=== PATIENT | female | born 1960 | race Caucasian/White ===

== ENCOUNTER → 2017-06-10 | Outpatient (CLI) | payer BC ==
--- NOTE | 2017-06-13 11:29 | MM ---
Reason for exam: screening (asymptomatic). Last mammogram was performed 2 years and 3 months ago. History: Patient is postmenopausal. Family history of breast cancer in paternal aunt. Physical Findings: A clinical breast exam by your physician is recommended on an annual basis and results should be correlated with mammographic findings. MG Screening Mammo w CAD Bilateral CC and MLO view(s) were taken. Prior study comparison: March 20, 2015, bilateral MG screening mammo w CAD. June 27, 2013, bilateral digital screening mammo w/CAD. There are scattered fibroglandular densities. Finding: There are typically benign dystrophic, round calcifications in both breasts. There is no discrete abnormality. ASSESSMENT: Benign, BI-RAD 2 RECOMMENDATION: Routine screening mammogram of both breasts in 1 year.
== END ==
LOC: RADMAMWWP 16:48
PROVIDERS: ATTEND Obstetrics & Gynecology
DX: Z12.31 Encounter for screening mammogram for malignant neoplasm of breast (principal)

== ENCOUNTER → 2017-06-11 | Outpatient (CLI) | payer BC | END | disposition home or self-care (01) | LOC: LABWHC1 08:23 | PROVIDERS: ATTEND Obstetrics & Gynecology | DX: E78.4 Other hyperlipidemia (principal) | CPT/HCPCS: 36415; 80061; 82947; 84439; 84443; 87086 ==

== ENCOUNTER → 2017-06-27 | Outpatient (CLI) | payer BC ==
--- NOTE | 2017-06-29 13:03 | BD ---
EXAMINATION TYPE: MG DEXA axial skeleton. DATE OF EXAM: 06/27/2017 COMPARISON: 06/27/2013 CLINICAL HISTORY: Postmenopausal female. Screening. Height: 63.5 IN Weight: 191 LBS FRAX RISK QUESTIONS: Alcohol (3 or more units per day): NO Family History (Parent hip fracture): NO Glucocorticoids (More than 3mos): NO (Ex: prednisone, prednisolone, methylprednisolone, dexamethasone, and hydrocortisone). History of Fracture in Adulthood: NO Secondary Osteoporosis: 1. Type 1 Diabetes: NO 2. Hyperthyroidism: NO 3. Menopause before 45: NO 4. Malnutrition: NO 5. Chronic liver disease: NO Rheumatoid Arthritis: NO Current Tobacco Use: NO RISK FACTORS HISTORY OF: Active: YES Postmenopausal woman: AGE 55 MEDICATIONS: Additional Medications: NONE EXAM MEASUREMENTS: Bone mineral densitometry was performed using the [employer] System. Bone mineral density as measured about the Lumbar spine is: ----- L1-L4(G/cm2): 1.185 T Score Values are as follows: ----- L2: -0.1 ----- L3: -0.3 ----- L4: 0.9 ----- L1-L4: 0.0 Bone mineral density has: Decreased -11.7SINCE STUDY OF06/27/2013 Bone mineral density about the R hip (g/cm2): 0.991 Bone mineral density about the L hip (g/cm2): 0.932 T Score values are as follows: -----R Neck: -0.3 -----L Neck: -0.8 -----R Total: 0.2 -----L Total: 0.0 Bone mineral density has: Decreased -9.3 SINCE STUDY OF06/27/2013 IMPRESSION: Normal (Values between +1 and -1 indicate normal bone mass). Consider repeating this study in 5 year s or sooner if there is some new clinical indication. NOTE: T-SCORE=SD OF THE YOUNG ADULT MEAN.
== END | disposition home or self-care (01) ==
LOC: RADBDWWP 16:18
PROVIDERS: ATTEND Obstetrics & Gynecology
DX: Z13.820 Encounter for screening for osteoporosis (principal)
CPT/HCPCS: 77080

== ENCOUNTER → 2018-11-04 | Outpatient (CLI) | payer BC ==
[2018-11-04 16:55] LABS: Albumin 4.3 g/dL (3.80-4.90); Albumin/Globulin Ratio 1.87 (1.60-3.17); Anion Gap 6.6 mmol/L (4.00-12.00); Calcium 9.4 mg/dL (8.7-10.3); Carbon Dioxide 29.4 mmol/L (21.6-31.8); Globulin 2.3 g/dL (1.6-3.3); LDL Cholesterol,Calculated 118.6 mg/dL (0.0-131.0); Potassium 4.2 mmol/L (3.5-5.5); Total Bilirubin 0.6 mg/dL (0.2-1.2); Total Protein 6.6 g/dL (6.2-8.2); VLDL Calculation 49.4 mg/dL (5.00-40.00)
== END ==
LOC: LABWHC1 09:01
PROVIDERS: ATTEND Nurse Practitioner Adult Health
DX: I10 Essential (primary) hypertension (principal); E78.5 Hyperlipidemia, unspecified; I47.1 Supraventricular tachycardia
CPT/HCPCS: 36415; 80053; 80061; 84443; 84481

== ENCOUNTER → 2018-11-30 | Outpatient (CLI) | payer BC ==
--- NOTE | 2018-11-30 18:04 | CONS ---
CONSULTATION DATE OF SERVICE: 11/30/2018 58-year-old lady who has been evaluated in the sleep center for possible obstructive sleep apnea-hypopnea syndrome. HISTORY OF PRESENT ILLNESS/ SLEEP-WAKE A EVALUATION: SLEEP SCHEDULE: Patient usual sleep schedule on working days from 11 p.m. until 6:45 to 7:00 am. On weekends from 10 p.m. to 8 a.m. FALLING ASLEEP: No problem with falling asleep, although patient has TV set in bedroom. DURING SLEEP: She usually sleeps on the stomach position. While falling asleep, she has some movements of her legs. She snores and wakes up from sleep once with nocturia. DURING THE DAY/SLEEP WAKE EVALUATION: No history of hypnagogic hallucinations, sleep paralysis or cataplexy. [place] Sleepiness Scale is 7. PAST MEDICAL HISTORY: Positive for hypertension. Episode of cardiac arrhythmia documented by Holter monitor during sleep. MEDICATIONS: Lisinopril, metoprolol. PAST SURGICAL HISTORY: Mole removed from the back, D and C. SOCIAL HISTORY: Negative for smoking. Alcohol consumption very occasional. FAMILY HISTORY: Colon cancer by her dad, diabetes by her mom. REVIEW OF SYSTEMS: Movements of legs while falling asleep during the night. PHYSICAL EXAM: lady without distress. BP 140/83, HR 75, RR 14, height 5 feet 3 and one half inches, weight 191.2 pounds, with body mass index 33.3, temperature 98.1, oxygen saturation at room air 99%. Oropharynx extremely low position of soft palate. Mallampati 4. Temperature 98.1. Neck Supple, no JVD. Thyroid is not palpable. LUNGS Clear to percussion and to auscultation. Good air exchange. No wheezing or rhonchi. HEART S1, S2 regular. No murmurs, gallops, or rubs. ABDOMEN: Slightly obese. Soft and nontender. Bowel sounds are present. No organomegaly appreciated. EXTREMITIES No clubbing or cyanosis. MID LEVEL DEVELOPER Awake, alert, and oriented X3. Cranial nerves 2 to 7 intact. There is no fasciculation or atrophy noted. No focal deficits observed. IMPRESSIONS: 1. ALICE 2. PLMS. 3. H/o Cardiac arrthymia. 4. Obesity. 5. HTN. PLAN: 1. Polysomnography for evaluation of patient's breathing during sleep. 2. CPAP/BiPAP titration if sleep study confirms obstructive sleep apnea-hypopnea syndrome. 3. Preferable position during sleep on the side. 4. No driving if patient feels any sleepiness. 5. I will see patient for follow up visit to explain results of testing and following plan. Thank you very much for referring this patient for consultation. Sincerely, David Staton MD, PhD, FAASM Diplomat of [place] [place] [employer] Kier Boiler of [facility] [place] MMODL / TIMN: [id number] / [facility]
== END | disposition home or self-care (01) ==
LOC: SLEEP 16:06
PROVIDERS: ATTEND Internal Medicine
DX: G47.33 Obstructive sleep apnea (adult) (pediatric) (principal); G47.61 Periodic limb movement disorder; R35.1 Nocturia; I10 Essential (primary) hypertension; E66.9 Obesity, unspecified; Z86.79 Personal history of other diseases of the circulatory system; Z68.33 Body mass index [BMI] 33.0-33.9, adult; Z98.890 Other specified postprocedural states; Z79.899 Other long term (current) drug therapy
CPT/HCPCS: 99211

== ENCOUNTER → 2018-12-15 | Outpatient (CLI) | payer BC ==
--- NOTE | 2018-12-18 10:23 | MM ---
Reason for exam: screening (asymptomatic). Last mammogram was performed 1 year and 6 months ago. History: Patient is postmenopausal. Family history of breast cancer in paternal aunt. Physical Findings: A clinical breast exam by your physician is recommended on an annual basis and results should be correlated with mammographic findings. MG Screening Mammo w CAD Bilateral CC and MLO view(s) were taken. Prior study comparison: June 10, 2017, bilateral MG screening mammo w CAD. March 20, 2015, bilateral MG screening mammo w CAD. The breast tissue is almost entirely fat. No significant changes when compared with prior studies. ASSESSMENT: Benign, BI-RAD 2 RECOMMENDATION: Routine screening mammogram of both breasts in 1 year.
== END ==
LOC: RADMAMWWP 15:47
PROVIDERS: ATTEND Obstetrics & Gynecology
DX: Z12.31 Encounter for screening mammogram for malignant neoplasm of breast (principal)
CPT/HCPCS: 77067

== ENCOUNTER → 2019-05-17 | Outpatient (CLI) | payer BC ==
--- NOTE | 2019-05-17 18:24 | PN ---
PROGRESS NOTE DATE OF SERVICE: 05/17/2019 This patient is a 59-year-old lady who has been followed in the sleep center for treatment of obstructive sleep apnea-hypopnea syndrome. Recently the patient had a home sleep apnea test which showed apnea-hypopnea index 26.6 with oxygen desaturation to 72%. The patient underwent a CPAP titration and her respiration was normalized. Subsequently she received her CPAP unit. Today is her first visit after she started to use her CPAP equipment. The patient is able to use CPAP equipment every night without significant problems related to mask fitting, pressure or humidification. According to her , she does not snore while using her CPAP. [place] Sleepiness Scale today is 10. I checked her CPAP unit. CPAP pressure is 9 cm of water. Usage is 24/30 nights for more than 4 hours, which is good compliance. Average usage 5 hours per night. Leak is 30 L/minute, which is borderline. Apnea-hypopnea index reading is only 1.3, which is absolutely perfect. MEDICATIONS: 1. Metoprolol. 2. Lisinopril. PHYSICAL EXAMINATION: GENERAL: A pleasant patient in no distress. VITAL SIGNS: BP 122/76, HR 70, RR 16, weight 193, temperature 98.2, oxygen saturation at room air 96%. HEENT: PERRLA, EOMI. Evaluation of oropharynx showed tongue protrudes midline. Low position of soft palate. Mallampati IV. NECK: Supple. No JVD. Thyroid is not palpable. LUNGS: Clear to percussion and to auscultation. Good air exchange. No wheezing or rhonchi. HEART: S1, S2 regular. No murmurs, gallops or rubs. ABDOMEN: Slightly obese. EXTREMITIES: No clubbing or cyanosis. COMMERCIAL INSULATOR: Awake, alert, and oriented X3. Cranial nerves 2 to 7 intact. There is no fasciculation or atrophy. noted. No focal deficits observed. IMPRESSION: 1. Moderate obstructive sleep apnea-hypopnea syndrome; apnea-hypopnea index 26.6 with oxygen desaturation to 72% by results of home sleep apnea test. The patient demonstrated great compliance with treatment, benefitting from treatment. 2. Hypertension. 3. Obesity. 4. History of cardiac arrhythmia; bundle branch block, according to patient. PLAN: 1. Patient will continue to use CPAP equipment every night for the whole night. 2. Losing weight. 3. Sleep hygiene with regular time in bed for at least 8 hours. 4. No driving if feeling any sleepiness. 5. I will maintain all necessary CPAP prescriptions, including mask, tube, filters. Thank you very much for allowing me to participate in the management of your patient. Sincerely, David Staton MD, PhD, FAASM Diplomat of [place] [employer] [place] [employer] [facility] [place] MMODL / TIMN: [id number] /
== END | disposition home or self-care (01) ==
LOC: SLEEP 15:40
PROVIDERS: ATTEND Internal Medicine
DX: G47.33 Obstructive sleep apnea (adult) (pediatric) (principal); I10 Essential (primary) hypertension; E66.9 Obesity, unspecified; Z86.79 Personal history of other diseases of the circulatory system; Z99.89 Dependence on other enabling machines and devices; Z79.899 Other long term (current) drug therapy

== ENCOUNTER → 2020-05-22 | Outpatient (CLI) | payer BC ==
--- NOTE | 2020-05-22 18:46 | SFUN ---
SLEEP CENTER FOLLOW UP NOTE DATE OF SERVICE: 05/22/2020 This patient is a 60-year-old lady who has been followed in Sleep Center for treatment of obstructive sleep apnea-hypopnea syndrome. The patient continues to use her CPAP equipment every night for the whole night. She does not snore with the machine. She feels slightly uncomfortable with the nasal mask and is asking for a trial with nasal pillows. [place] Sleepiness Scale today is 11, which is slightly above normal. I checked her CPAP unit. Usage is 29/30 nights, 17/30 nights for more than 4 hours. Average usage 4.2 hours per night. Leak is 43 L/minute. Pressure is 9 cm of water. Apnea-hypopnea index is 1.0. MEDICATIONS: Metoprolol, lisinopril. PHYSICAL EXAMINATION: GENERAL: A pleasant patient in no distress. VITAL SIGNS: BP 126/81, HR 72, RR 15, height 5 feet 4 inches, weight 199, body mass index 33.9. The patient's weight increased by about 6 pounds since her previous visit. Temperature 98.6. Oxygen saturation at room air 99%. HEENT: PERRLA, EOMI. Evaluation of oropharynx showed tongue protrudes midline. Low position of soft palate. Mallampati IV. NECK: Supple. No JVD. Thyroid is not palpable. LUNGS: Clear to percussion and to auscultation. Good air exchange. No wheezing or rhonchi. HEART: S1, S2 regular. No murmurs, gallops or rubs. ABDOMEN: Slightly obese. EXTREMITIES: No clubbing or cyanosis. BELT SANDER STONE: Awake, alert, and oriented X3. Cranial nerves 2 to 7 intact. There is no fasciculation or atrophy. noted. No focal deficits observed. IMPRESSION: 1. Moderate obstructive sleep apnea-hypopnea syndrome; apnea-hypopnea index 26.6 with oxygen saturation to 72% by results of home sleep test. The patient demonstrated borderline compliance with treatment, benefitting from treatment. 2. Hypertension. 3. Obesity. 4. History of bundle branch block. PLAN: 1. We discussed with the patient the necessity to increase the time of usage of her CPAP unit during sleep. Again, average time is 4.2 hours, and I would prefer that she use it more. 2. We will try nasal pillows, AirFit P10, instead of nasal mask. 3. Sleep hygiene with regular time in bed for at least 7-1/2 to 8 hours. 4. Precautions related to driving. No driving if feeling sleepiness. 5. I will maintain all necessary prescription for PAP supplies including mask, tube, filters. 6. Watching weight. 7. Follow-up visit in 6 months or earlier if patient has any problems. Thank you very much for allowing me to participate in the management of your patient. Sincerely, David Staton MD, PhD, FAASM Diplomat of [place] [employer] [employer] Representative of [facility] [place] MMODL / IJN: [id number] /
== END | disposition home or self-care (01) ==
LOC: SLEEP 15:49
PROVIDERS: ATTEND Internal Medicine
DX: G47.33 Obstructive sleep apnea (adult) (pediatric) (principal); I10 Essential (primary) hypertension; E66.9 Obesity, unspecified; Z86.79 Personal history of other diseases of the circulatory system; Z99.89 Dependence on other enabling machines and devices

== ENCOUNTER → 2022-06-30 | Outpatient (CLI) | payer BC ==
--- NOTE | 2022-07-01 08:16 | BD ---
EXAMINATION TYPE: Axial Bone Density DATE OF EXAM: 06/30/2022 COMPARISON: Prior DEXA bone scan 2016 CLINICAL HISTORY: 62 years year old Female. ICD-10 CODE: N95.1 POST MENOPAUSAL SYMPTOMS Height: 5 FT 3 1/4 IN Weight: 196 FRAX RISK QUESTIONS: Alcohol (3 or more units per day): NO Family History (Parent hip fracture): NO Glucocorticoids (More than 3mos): NO (Ex: prednisone, prednisolone, methylprednisolone, dexamethasone, and hydrocortisone). History of Fracture in Adulthood: NO Secondary Osteoporosis: 1. Type 1 Diabetes: NO 2. Hyperthyroidism: NO 3. Menopause before 45: NO 4. Malnutrition: NO 5. Chronic liver disease: NO Rheumatoid Arthritis: NO Current Tobacco Use: NO RISK FACTORS HISTORY OF: Surgery to Spine/Hip(right/left)/Wrist (right/left): NO Family History of Osteoporosis: NO Active: YES Diet low in dairy products/other sources of calcium: NO Postmenopausal woman: YES Take estrogen and/or progesterone medications: NO Lost more than 2 inches in height since high school: NO Frequent falls: NO Poor Health: GOOD Hyperparathyroidism: NO Adrenal Insufficiency: NO MEDICATIONS: Additional Medications: LISINOPRIL,METOPROLOL Additional History: EXAM MEASUREMENTS: Bone mineral densitometry was performed using the [facility]. Bone mineral density as measured about the Lumbar spine is: ----- L1-L4(G/cm2): 1.186 T Score Values are as follows: ----- L1: -0.7 ----- L2: -0.5 ----- L3: 0.2 ----- L4: 0.6 ----- L1-L4: 0.1 Bone mineral density has: INCREASED 0.2 % since study of: 2017 Bone mineral density about the R hip (g/cm2): 0.902 Bone mineral density about the L hip (g/cm2): 0.961 T Score values are as follows: -----R Neck: -1.0 -----L Neck: -0.6 -----R Total: -0.2 -----L Total: -0.1 Bone mineral density has: DECREASED -3.3 % since study of: 2017 FRAX%s: The graph provided illustrates a 7.3 % chance for a major osteoporotic fx and a 0.5 % chance for the hips probability for fx in 10 years time. IMPRESSION: Normal (Values between +1 and -1 indicate normal bone mass). Consider repeating this study in 5 year s or sooner if there is some new clinical indication. NOTE: T-SCORE=SD OF THE YOUNG ADULT MEAN.
--- NOTE | 2022-07-01 08:49 | MM ---
Reason for Exam: Screening (asymptomatic). Last mammogram was performed 3 year(s) and 6 month(s) ago. Patient History: Menarche at age 10. First Full-Term at age 21. Hysterectomy at age 60. Postmenopausal. Patient has history of breast feeding. Paternal aunt had breast cancer, age 52. Risk Values: Brielle 5 year model risk: 1.4%. NCI Lifetime model risk: 5.8%. Prior Study Comparison: 03/20/2015 Bilateral Screening Mammogram, [facility]. 06/10/2017 Bilateral Screening Mammogram, [facility]. 12/15/2018 Bilateral Screening Mammogram, [facility]. Tissue Density: There are scattered fibroglandular densities. Findings: Analyzed By CAD. There is no suspicious group of microcalcifications or new suspicious mass in either breast. Chronic nodularity within the right breast. Benign-appearing round calcifications within both breasts. No significant change from prior examinations. Overall Assessment: Benign, BI-RAD 2 Management: Screening Mammogram of both breasts in 1 year. A clinical breast exam by your physician is recommended on an annual basis and results should be correlated with mammographic findings. Electronically signed and approved by: Chris Byrnes D.O.
--- NOTE | 2022-07-01 08:49 | MM ---
Reason for Exam: Screening (asymptomatic). Last mammogram was performed 3 year(s) and 6 month(s) ago. Patient History: Menarche at age 10. First Full-Term at age 21. Hysterectomy at age 60. Postmenopausal. Patient has history of breast feeding. Paternal aunt had breast cancer, age 52. Risk Values: Brielle 5 year model risk: 1.4%. NCI Lifetime model risk: 5.8%. Prior Study Comparison: 03/20/2015 Bilateral Screening Mammogram, [facility]. 06/10/2017 Bilateral Screening Mammogram, [facility]. 12/15/2018 Bilateral Screening Mammogram, [facility]. Tissue Density: There are scattered fibroglandular densities. Findings: Analyzed By CAD. There is no suspicious group of microcalcifications or new suspicious mass in either breast. Chronic nodularity within the right breast. Benign-appearing round calcifications within both breasts. No significant change from prior examinations. Overall Assessment: Benign, BI-RAD 2 Management: Screening Mammogram of both breasts in 1 year. A clinical breast exam by your physician is recommended on an annual basis and results should be correlated with mammographic findings. Electronically signed and approved by: Chris Byrnes D.O.
== END | disposition home or self-care (01) ==
LOC: RADBDWWP 15:23
PROVIDERS: ATTEND Obstetrics & Gynecology
DX: Z12.31 Encounter for screening mammogram for malignant neoplasm of breast (principal); N95.1 Menopausal and female climacteric states
CPT/HCPCS: 77063; 77067; 77080

== ENCOUNTER → 2022-07-23 | Outpatient (CLI) | payer BC ==
[2022-07-23 14:15] LABS: Basophils # (A) 0.04 X 10*3/uL (0.00-0.10); Basophils % (A) 0.8 %; Eosinophils # (A) 0.21 X 10*3/uL (0.04-0.35); Eosinophils % (A) 4.1 %; HCT 40.4 % (37.2-46.3); HGB 13.2 g/dL (12.0-15.0); Immature Grans, Automated 0.4 %; Lymphocytes # (A) 1.46 X 10*3/uL (0.90-5.00); Lymphocytes % (A) 28.6 %; MCH 29.8 pg (27.0-32.0); MCHC 32.7 g/dL (32.0-37.0); MCV 91.2 fL (80.0-97.0); Mean Platelet Volume 11.5 fL (9.5-12.2); Monocytes # (A) 0.55 X 10*3/uL (0.20-1.00); Monocytes % (A) 10.8 %; NRBC Per 100 WBC 0 /100 WBCS (0.0-0.0); Neutrophils # (A) 2.83 X 10*3/uL (1.80-7.70); Neutrophils % (A) 55.3 %; Platelet Count 201 X 10*3/uL (140-440); RBC 4.43 X 10*6/uL (4.10-5.20); WBC 5.11 X 10*3/uL (4.50-10.00)
[2022-07-23 14:42] LABS: ALT 23 U/L (8-44); AST 17 U/L (13-35); African American GFR (CKD) 90.3 (60.0-200.0); Albumin 4.5 g/dL (3.8-4.9); Alkaline Phosphatase 51 U/L (41-126); BUN/Creat Ratio 19.88 Ratio (12.00-20.00); Blood Urea Nitrogen 15.9 mg/dL (9.0-27.0); Calcium 9.2 mg/dL (8.7-10.3); Carbon Dioxide 25.4 mmol/L (20.0-27.5); Chloride 106 mmol/L (96-109); Chol/HDL Ratio 5.48 Ratio; Globulin 2.5 g/dL (1.6-3.3); Glucose 101 mg/dL (70-110); LDL Cholesterol,Calculated 128.4 mg/dL (0.0-131.0); Non-African American GFR(CKD) 77.9 (60.0-200.0); Potassium 4.2 mmol/L (3.5-5.5); Sodium 142 mmol/L (135-145)
== END | disposition home or self-care (01) ==
LOC: LABWHC1 09:00
PROVIDERS: ATTEND Family Medicine
DX: Z00.00 Encounter for general adult medical examination without abnormal findings (principal); E55.9 Vitamin D deficiency, unspecified; I10 Essential (primary) hypertension; I48.91 Unspecified atrial fibrillation; K21.9 Gastro-esophageal reflux disease without esophagitis
CPT/HCPCS: 36415; 80053; 80061; 82306; 83036; 85025

== ENCOUNTER 2024-03-22 19:32 | Emergency (ER) | payer MEDICARE ==
[2024-03-22 19:58] VITALS: TEMP 98
--- NOTE | 2024-03-22 20:19 | XR ---
EXAMINATION TYPE: XR knee complete RT DATE OF EXAM: 03/22/2024 8:11 PM CLINICAL INDICATION:Female, 63 years old with history of fall swelling no weight bearing; H COMPARISON: None. TECHNIQUE: XR knee complete RT; examined in Frontal, lateral and oblique projections. FINDINGS: No evidence of any acute osseous pathology, soft tissue swelling, or joint effusion is no greg. Tricompartmental osteophyte formation involving the femoral condyles, tibial plateau and patella . Mild joint space narrowing. IMPRESSION: 1. No acute osseous pathology. 2. Moderate tricompartmental osteoarthritic changes.
--- NOTE | 2024-03-22 21:18 | ED ---
Lower Extremity Injury HPI - General Chief Complaint: Extremity Injury, Lower Stated Complaint: R knee pain Time Seen by Provider: 03/22/24 20:40 Source: patient, family Mode of arrival: wheelchair Limitations: no limitations - History of Present Illness Initial Comments: 63-year-old female presenting with chief complaint of right knee pain. Patient was getting off of her riding lawnmower when she felt a pop in her right knee. She has an appointment scheduled with Dr. Curran to inquire about knee replacement. States that she cannot bear weight on the leg without severe pain. She also cannot passively extend. Admits to swelling. - Related Data Home Medications Medication Instructions Recorded Confirmed Multivitamin [Children's 1 each PO DAILY 10/29/15 04/20/16 Multivitamins] Previous Rx's Medication Instructions Recorded Ibuprofen [Motrin] 600 mg PO Q6HR PRN #40 tab 11/03/15 Allergies Allergy/AdvReac Type Severity Reaction Status Date / Time Sulfa (Sulfonamide Allergy Rash/Hives Verified 04/20/16 14:24 Antibiotics) Review of Systems ROS Statement: Those systems with pertinent positive or pertinent negative responses have been documented in the HPI. ROS Other: All systems not noted in ROS Statement are negative. Past Medical History Past Medical History: Hypertension Additional Past Medical History / Comment(s): irregular heart beat/"bundle block", History of Any Multi-Drug Resistant Organisms: ESBL Date of last positivie culture/infection: 11/21/19 MDRO Source:: ESBL URINE Past Surgical History: Hysterectomy Additional Past Surgical History / Comment(s): D&C, mole removed from back Past Anesthesia/Blood Transfusion Reactions: No Reported Reaction Past Psychological History: No Psychological Hx Reported Past Alcohol Use History: Occasional Past Drug Use History: None Reported - Past Family History Father Family Medical History: Cancer Additional Family Medical History / Comment(s): COLON CANCER General Exam Limitations: no limitations General appearance: alert, in no apparent distress Head exam: Present: atraumatic, normocephalic Eye exam: Present: normal appearance, EOMI Neck exam: Present: normal inspection. Absent: meningismus Respiratory exam: Absent: respiratory distress Cardiovascular Exam: Present: regular rate Right Knee exam: Present: tenderness, swelling. Absent: full ROM, full knee extension Neurovascular tendon exam: Present: no vascular compromise Neurological exam: Present: alert, oriented X3 Psychiatric exam: Present: normal affect, normal mood Skin exam: Present: warm, dry Course Vital Signs 03/22/24 03/22/24 19:55 22:04 Temperature 98 F Pulse Rate 88 86 Respiratory 20 18 Rate Blood Pressure 131/75 137/87 O2 Sat by Pulse 98 99 Oximetry Medical Decision Making - Medical Decision Making Was pt. sent in by a medical professional or institution (, [facility], WEBSITE ADMIN, urgent care, hospital, or penitentiary...) When possible be specific @ -No Did you speak to anyone other than the patient for history (EMS, parent, family, police, friend...)? What history was obtained from this source @ -No Did you review nursing and triage notes (agree or disagree)? Why? @ -I reviewed and agree with nursing and triage notes Were old charts reviewed (outside hosp., previous admission, EMS record, old EKG, old radiological studies, urgent care reports/EKG's, penitentiary records)? Report findings @ -No old charts were reviewed Differential Diagnosis (chest pain, altered mental status, abdominal pain women, abdominal pain men, vaginal bleeding, weakness, fever, dyspnea, syncope, headache, dizziness, GI bleed, back pain, seizure, CVA, palpatations, mental health, musculoskeletal)? @ -Differential Musculoskeletal Muscular strain, contusion, ligament sprain, fracture, arthritis, septic arthritis, bursitis, cellulitis, muscle spasm, nerve compression, DVT, arterial occlusion, herpes zoster, electrolyte abnormality, tumor.... This is not meant to be in all inclusive list EKG interpreted by me (3pts min.). @ -As above X-rays interpreted by me (1pt min.). @ -X-ray shows no acute osseous pathology. Moderate tricompartmental osteoarthritic changes. CT interpreted by me (1pt min.). @ -None done U/S interpreted by me (1pt. min.). @ -None done What testing was considered but not performed or refused? (CT, X-rays, U/S, labs)? Why? @ -None What meds were considered but not given or refused? Why? @ -None Did you discuss the management of the patient with other professionals (professionals i.e. , [facility], WEBSITE ADMIN, lab, RT, psych nurse, renal social worker, housemaid, teacher, account officer, telephonic nurse case manager)? Give summary @ -No Was smoking cessation discussed for >3mins.? @ -No Was critical care preformed (if so, how long)? @ -No Were there social determinants of health that impacted care today? How? (Homelessness, low income, unemployed, alcoholism, drug addiction, transportation, low edu. Level, literacy, decrease access to med. care, fpc, rehab)? @ -No Was there de-escalation of care discussed even if they declined (Discuss DNR or withdrawal of care, Hospice)? DNR status @ -No What co-morbidities impacted this encounter? (DM, HTN, Smoking, COPD, CAD, Cancer, CVA, ARF, Chemo, Hep., AIDS, mental health diagnosis, sleep apnea, morbid obesity)? @ -None Was patient admitted / discharged? Hospital course, mention meds given and route, prescriptions, significant lab abnormalities, going to OR and other pertinent info. @ -63-year-old female presenting with chief complaint of right knee pain. Drew a pop while stepping down from her lawn more today. Workup is initiated by triage. X-rays negative for fracture or dislocation. There are osteoarthritic changes. She is later placed in a room and examined by myself. She cannot passively extend the leg. She has swelling and pain mainly to the inferior portion. She is placed in a knee immobilizer and will use her walker at home. [facility] and follow-up with her surgeon Dr. Curran. Discharge. Follow-up with PCP. Report back to ER with any new or worsening symptoms. Discussed return parameters and answered all questions. Patient conveyed verbal understanding and agreed to the plan. I discussed this case in detail with my attending Dr. Jiménez Undiagnosed new problem with uncertain prognosis? @ -No Drug Therapy requiring intensive monitoring for toxicity (Heparin, Nitro, I nsulin, Cardizem)? @ -No Were any procedures done? @ -No Diagnosis/symptom? @ -Knee injury Acute, or Chronic, or Acute on Chronic? @ -Acute Uncomplicated (without systemic symptoms) or Complicated (systemic symptoms)? @ -Uncomplicated Side effects of treatment? @ -No Exacerbation, Progression, or Severe Exacerbation? @ -No Poses a threat to life or bodily function? How? (Chest pain, [place], [place], pneumonia, PE, COPD, DKA, ARF, appy, cholecystitis, CVA, Diverticulitis, Homicidal, Suicidal, threat to staff... and all critical care pts) @ -No Disposition Clinical Impression: Knee sprain Disposition: HOME SELF-CARE Condition: Fair Instructions (If sedation given, give patient instructions): Knee Sprain (ED) Additional Instructions: Follow-up with orthopedics. Report back to ER with any new or worsening symptoms. Is patient prescribed a controlled substance at d/c from ED?: No Referrals: Frankie Garcia DO [Primary Care Provider] - 1-2 days Manohar Curran DO [Doctor of Osteopathic Medicine] - 1-2 days Time of Disposition: 21:18
[2024-03-22] MEDS: HYDROcodone/APAP 7.5-325MG 1 EACH TAB PO ONE (21:57)
[2024-03-22] MEDS: ACET/COD 300 MG/30 MG STARTER PACK 6 TAB BTL PO STA (21:59)
[2024-03-22 22:05] VITALS: BP 137/87; PULSE 86; RESP 18
== END 2024-03-22 22:13 | disposition home or self-care (01) ==
LOC: EC 19:32
DX: S83.91XA Sprain of unspecified site of right knee, initial encounter (principal); Z88.2 Allergy status to sulfonamides; X58.XXXA Exposure to other specified factors, initial encounter
CPT/HCPCS: 73562; 99283; L1830 ×2